=== PATIENT | female | born 1975 | race Caucasian/White ===

== ENCOUNTER 2016-06-15 06:41 | Day surgery (SDC) | payer OTHER ==
[2016-06-09 15:11] VITALS: BMI 28.7
[2016-06-15] MEDS ORDERED: TOBRA 0.3%/DEXAMETH 0.1% OPHTHALMIC SUSP 2.5 ML BTL ONE (07:33)
[2016-06-15] MEDS ORDERED: TOBRA 0.3%/DEXAMETH 0.1% OPHTHALMIC SUSP 2.5 ML BTL OD SCH (08:00)
[2016-06-15] MEDS ORDERED: MIDAZOLAM HCL 2 MG/2 ML SINGLE DOSE VIAL ONE ×5 (09:06→10:40)
[2016-06-15] MEDS ORDERED: PROPOFOL 20 ML ONE (09:06)
[2016-06-15] MEDS ORDERED: methylPREDNISolone NA SUCC 40 MG/1 ML VIAL ONE (09:13)
[2016-06-15] MEDS ORDERED: LIDOCAINE 1% P/F 10 MG/ML VIAL ONE (09:13)
[2016-06-15] MEDS ORDERED: BSS (NA/CA/MG/K) BALANCED SALT SOLUTION OPHTH SOLN 15 ML BOTTLE ONE (09:14)
[2016-06-15] MEDS ORDERED: LIDOCAINE HCL 2% JELLY 10 ML CARTRIDGE ONE (09:14)
[2016-06-15] MEDS ORDERED: POVIDONE-IODINE 5% OPHTHALMIC PREP 30 ML SOLUTION ONE (09:14)
[2016-06-15] MEDS ORDERED: PHENYLEPHRINE 2.5% OPHTH SOLN 15 ML BOTTLE ONE (09:14)
[2016-06-15] MEDS ORDERED: LIDOCAINE HCL/EPINEPHRINE/PF 20 ML VIAL ONE (09:14)
[2016-06-15] MEDS ORDERED: ACETAMINOPHEN 325 MG TABLET (FP) PO PRN ×2 (11:16→15:32)
[2016-06-15] MEDS ORDERED: oxyCODONE HCL 5 MG TABLET ONE (11:27)
[2016-06-15] MEDS ORDERED: oxyCODONE HCL 5 MG TABLET PO ONE (11:28)
[2016-06-15 11:39] VITALS: TEMP 98.3
[2016-06-15 12:15] VITALS: BP 110/62; PULSE 86
--- NOTE | 2016-06-15 13:27 | OP ---
DATE OF OPERATION: 06/15/2016 PREOPERATIVE DIAGNOSIS: Pterygium, right eye. POSTOPERATIVE DIAGNOSIS: Pterygium, right eye. PROCEDURE: Pterygium excision with free conjunctival autograft using mitomycin C. SURGEON: Raz Fernandez MD ON AIR HOST: Irlanda Alberto MD ANESTHESIA: Regional with sedation. ESTIMATED BLOOD LOSS: Less than 1 mL. COMPLICATIONS: None. SPECIMENS: Pterygium, right eye. DESCRIPTION OF PROCEDURE: The patient was identified in the holding area. After all risks, benefits, and alternatives were explained to the patient, informed consent was obtained. The right eye was marked with a marking pen. The patient entered the operating room on an eye stretcher. After a formal time-out was performed, a 2-mL injection of equal parts 2% lidocaine, epinephrine, and 0.5% Marcaine was given around the right eye. The patient was then prepped and draped in the usual sterile fashion. An eyelid speculum was placed beneath the eyelids of the right eye. Upon inspection, a nasal pterygium was observed. The body of the pterygium was outlined using a marking pen. Then, the whole pterygium was excised from the cornea and conjunctiva using combination of kletsel dehe wintun blade with 0.12 forceps, Joey scissors. The pterygium was then submitted for specimen. All excess [place] was removed from the eye. Hemostasis was achieved using cautery. Traction sutures were also placed at the superior and inferior limbus using 6-0 silk sutures. Calipers were then used to measure the host scleral bed sites, and the site measured 7.5 mm x 7 mm. The eye was then rotated inferiorly to expose superior conjunctiva. A 7.5 x 7 mm conjunctival free autograft was then created and rotated down to the scleral bed, limbus to limbus. The donor graft was then secured to the scleral bed and host conjunctiva using interrupted 7-0 Vicryl sutures. The graft site remained flat at all times without any bleeding. The graft was found to be securely fashioned and adherent to the host conjunctiva. Of note, before the free autograft was created, mitomycin C was applied to the scleral bed site for about 1 minute. The mitomycin C was flushed completely off the eye using balanced saline solution. Topical antibiotic ointment was then placed on the eye, and the traction sutures were removed. The eyelid speculum was removed from the eye. The right eye was then patched and shielded. The patient tolerated the procedure well and left the operating room in stable condition to follow up in the eye clinic the following morning at 9:00. RAZ FERNANDEZ M.D. [id number]
[2016-06-15] MEDS ORDERED: LACTATED RINGERS SOLUTION 1,000 ML IV SCH (13:45)
[2016-06-15] MEDS ORDERED: ONDANSETRON 4 MG/2 ML VIAL IVPUSH PRN (15:33)
--- NOTE | 2016-06-17 14:27 | PATH ---
Surgical Pathology Report Patient Name: MARIA ISABEL THORNTON [facility]. Rec. #: [id number] /Age/Gender: 1975 (Age: 40) / F Account: [id number] Location: [facility] Taken: 06/14/2016 Received: 06/15/2016 Reported: 06/17/2016 Physicians: Irlanda Torres Specimen(s) Received PTERYGIUM RIGHT EYE Clinical History Pterygium right eye Final Diagnosis PTERYGIUM, RIGHT EYE, EXCISION: PTERYGIUM. Electronically Signed Vida Melvin M.D. Gross Description Received in formalin, labeled "pterygium right eye" are 2 vital-brown, irregular portions of soft tissue measuring 0.4 and 0.5 cm. in greatest dimension. The specimens are submitted in toto in one cassette. 06/16/201606/16/2016
== END 2016-06-15 12:17 | disposition home or self-care (01) ==
LOC: FASU 06:41
PROVIDERS: ATTEND Ophthalmology
PROC: 08RSX7Z Replacement of Right Conjunctiva with Autologous Tissue Substitute, External Approach (ICD-10-PCS; principal; 2016-06-15 09:55)
DX: H11.001 Unspecified pterygium of right eye (principal)
CPT/HCPCS: 84703; 88304-TC

== ENCOUNTER 2017-01-18 07:35 | Day surgery (SDC) | payer OTHER ==
[2017-01-17 12:47] VITALS: BMI 29.8
[2017-01-18 07:54] VITALS: BP 123/74; PULSE 96; TEMP 98.1
[2017-01-18] MEDS ORDERED: TOBRA 0.3%/DEXAMETH 0.1% OPHTHALMIC SUSP 2.5 ML BTL ONE (07:59)
[2017-01-18] MEDS ORDERED: TOBRA 0.3%/DEXAMETH 0.1% OPHTHALMIC SUSP 2.5 ML BTL OS SCH (08:00)
== END 2017-01-18 09:30 | disposition home or self-care (01) ==
LOC: FASU 07:35
PROVIDERS: ATTEND Ophthalmology
PROC: 08QTXZZ Repair Left Conjunctiva, External Approach (ICD-10-PCS; principal; 2017-01-18)
DX: Z53.8 Procedure and treatment not carried out for other reasons (principal)
CPT/HCPCS: 84703